=== PATIENT | female | born 1990 | race Two or more races ===

== ENCOUNTER 2018-07-20 06:58 | Emergency (ER) | payer MEDICAID ==
[~2018-07-20] VITALS: Ht 152.4 cm; Wt 47.6 kg
[2018-07-20] MEDS ORDERED: LORazepam 0.5 MG TAB PO ONE (08:15)
[2018-07-20 08:18] LABS: Urine Bacteria NONE SEEN /hpf (None Seen); Urine Blood 1+ /uL (Negative); Urine Mucus FEW (None Seen); Urine Specific Gravity 1.029 (1.001-1.035); Urine WBC 4 /hpf (0 - 5)
[2018-07-20] MEDS ORDERED: cefTRIAXone SOD 1,000 MG VL IM ONE (09:00)
[2018-07-20] MEDS ORDERED: SODIUM CHLORIDE LOCK 10 ML ONE (09:36)
[2018-07-20 09:50] VITALS: BP 140/82
== END 2018-07-20 10:28 | disposition home or self-care (01) ==
LOC: ER 06:58
DX: F41.9 Anxiety disorder, unspecified (principal); N39.0 Urinary tract infection, site not specified; Z88.0 Allergy status to penicillin
CPT/HCPCS: 81001; 81025; 96372; 99284; J0696

== ENCOUNTER 2022-04-25 23:54 | Emergency (ER) | payer MEDICAID ==
[~2022-04-25] VITALS: Ht 149.9 cm; Wt 50.0 kg
[2022-04-26] MEDS ORDERED: LORazepam 2MG/ML-1ML VIAL IM ONE (03:15)
[2022-04-26] MEDS ORDERED: HYDR50CA PO (03:15)
[2022-04-26 03:30] VITALS: BP 129/81
== END 2022-04-26 04:17 | disposition home or self-care (01) ==
LOC: ER 04-26 00:04
DX: F41.9 Anxiety disorder, unspecified (principal); R51.9 Headache, unspecified; F32.9 Major depressive disorder, single episode, unspecified
CPT/HCPCS: 93005; 96372; 99283; J2060

== ENCOUNTER → 2022-04-29 | Emergency (ER) | payer MEDICAID ==
[~2022-04-29] VITALS: Ht 152.4 cm; Wt 44.8 kg
[~2022-04-29] MED LIST: HYDR50CA PO
[2022-04-29 17:55] VITALS: BP 137/90
== END | disposition left against medical advice (07) ==
LOC: ER 17:33
DX: F41.9 Anxiety disorder, unspecified (principal); Z53.21 Procedure and treatment not carried out due to patient leaving prior to being seen by health care provider

== ENCOUNTER 2022-04-30 02:10 | Emergency (ER) | payer MEDICAID ==
[~2022-04-30] VITALS: Ht 149.9 cm; Wt 44.6 kg
[2022-04-30] MEDS ORDERED: LORazepam 2MG/ML-1ML VIAL IM ONE (03:00)
[2022-04-30 03:11] LABS: Basophils # (auto) 0 10 ^3/uL (0-0.2); Eosinophils # (auto) 0 10 ^3/uL (0-0.8); Hemoglobin 13.2 g/dL (12.2-16.2); Mean Corpuscular Hemoglobin 34.3 pg (28.0-32.0); Monocytes # (auto) 0.9 10 ^3/uL (0-1.3); Red Cell Distribution Width 13.7 % (11.8-14.3)
[2022-04-30 03:13] LABS: Basophils % (auto) 0.6 % (0.0-2.0); Eosinophils % (auto) 0.5 % (0.0-7.0); Hematocrit 37.2 % (36.0-46.0); Lymphocytes # (auto) 0.7 10 ^3/uL (0.4-5.4); Lymphocytes % (auto) 10.9 % (10.0-50.0); Mean Corpuscular Hgb Conc. 35.4 g/dL (32.0-36.0); Mean Corpuscular Volume 96.9 fL (80.0-100.0); Monocytes % (auto) 13.9 % (0.0-12.0); Neutrophils % (auto) 74.1 % (37.0-80.0); Red Blood Cells 3.84 10^6/uL (4.0-5.20); White Blood Cell 6.7 10^3/uL (4.4-10.8)
[2022-04-30 03:19] LABS: Urine Bacteria FEW /hpf (None Seen); Urine Blood Negative /uL (Negative); Urine Mucus FEW (None Seen); Urine Specific Gravity 1.005 (1.001-1.035); Urine WBC 1 /hpf (0 - 5)
[2022-04-30 03:20] LABS: Alcohol, Urine < 3.0 mg/dL (0-10); Amphetamine Screen, Urine NEGATIVE (NEGATIVE); Barbiturate Scree,Urine NEGATIVE (NEGATIVE); Benzodiazephine Screen, Urine NEGATIVE (NEGATIVE); Cannabinoid Screen, Urine POSITIVE (NEGATIVE); Cocaine Screen, Urine NEGATIVE (NEGATIVE); Phencyclidine Screen, Urine NEGATIVE (NEGATIVE)
[2022-04-30 03:27] LABS: Opiate Scree,Urine NEGATIVE (NEGATIVE)
[2022-04-30 03:29] LABS: Albumin 4.3 g/dL (3.4-5.0); BUN/Creatinine Ratio 5.4; Calcium 9.8 mg/dL (8.5-10.1)
[2022-04-30 03:32] LABS: Bilirubin, Total 0.8 mg/dL (0.2-1.0); Total Protein 8.3 g/dL (6.4-8.2)
[2022-04-30 03:35] LABS: Potassium 2.9 mmol/L (3.5-5.1)
[2022-04-30] MEDS ORDERED: POTASSIUM EFFERVESENT TAB 25 MEQ PO ONE (03:45)
[2022-04-30 08:40] VITALS: BP 116/86
== END 2022-04-30 08:43 | disposition home or self-care (01) ==
LOC: ER 02:10
DX: F41.9 Anxiety disorder, unspecified (principal); F10.10 Alcohol abuse, uncomplicated; Z79.899 Other long term (current) drug therapy; Z88.0 Allergy status to penicillin
CPT/HCPCS: 36415; 70450; 80053; 80307; 80320; 81001; 85025; 96372; 99285; J2060

== ENCOUNTER 2022-12-21 18:30 | Emergency (ER) | payer MEDICAID ==
[~2022-12-21] VITALS: Ht 149.9 cm; Wt 45.0 kg
[2022-12-21] MEDS ORDERED: HYDROmorphone HCL 2 MG/ML VL/or syr IM ONE (19:45)
[2022-12-21] MEDS ORDERED: ONDANSETRON HCL 4 MG/2 ML VIAL IM ONE (19:45)
[2022-12-21 20:14] LABS: Eosinophils # (auto) 0 10 ^3/uL (0-0.8); Monocytes % (auto) 8.5 % (0.0-12.0); Nucleated Red Blood Cells % 0.1 %
[2022-12-21 20:16] LABS: Basophils # (auto) 0.1 10 ^3/uL (0-0.2); Basophils % (auto) 0.3 % (0.0-2.0); Hematocrit 45.9 % (36.0-46.0); Hemoglobin 14.3 g/dL (12.2-16.2); Lymphocytes % (auto) 6.9 % (10.0-50.0); Mean Corpuscular Hemoglobin 32.5 pg (28.0-32.0); Mean Corpuscular Volume 104.8 fL (80.0-100.0); Monocytes # (auto) 1.2 10 ^3/uL (0-1.3); Neutrophils # (auto) 12.3 10 ^3/uL (1.6-8.6); Neutrophils % (auto) 84.3 % (37.0-80.0); Red Blood Cells 4.38 10^6/uL (4.0-5.20); Red Cell Distribution Width 14.2 % (11.8-14.3); White Blood Cell 14.6 10^3/uL (4.4-10.8)
[2022-12-21 20:42] LABS: Alanine Aminotransferase 55 U/L (7-40); Albumin 5.6 g/dL (3.2-4.8); Alkaline Phosphatase 96 U/L (46-116); Anion Gap 23.00001 (5-15); Aspartate Aminotransferase 114 U/L (13-40); Bilirubin, Total 0.7 mg/dL (0.2-1.0); Calcium 9.2 mg/dL (8.7-10.4); Chloride 100 mmol/L (98-107); Lipase 66 U/L (12-53); Potassium 4.6 mmol/L (3.5-5.1); Sodium 133 mmol/L (136-145); Total Protein 9.6 g/dL (5.7-8.2)
[2022-12-21 20:57] VITALS: BP 123/83; PULSE 60; RESP 18; O2SAT 100
[2022-12-21 21:46] LABS: Urine Bacteria NONE SEEN /hpf (None Seen); Urine Blood 2+ /uL (Negative); Urine Clarity HAZY (Clear); Urine Color Yellow (Yellow); Urine Hyaline Cast FEW /lpf (0 - 2); Urine Protein, UAD 3+ (Negative); Urine Specific Gravity 1.019 (1.001-1.035); Urine Urobilinogen Normal (Negative); Urine WBC 2 /hpf (0 - 5); Urine pH 5.5 (5.0-8.0)
[2022-12-21 21:50] LABS: BUN/Creatinine Ratio 5.7 (10.0-20.0); Blood Urea Nitrogen < 5 mg/dL (9-23)
[2022-12-21 21:53] LABS: Glucose 114 mg/dL (74-106)
[2022-12-21 21:54] LABS: Carbon Dioxide < 10 mmol/L (20-30)
== END 2022-12-21 23:16 | disposition left against medical advice (07) ==
LOC: ER 18:30
DX: F10.10 Alcohol abuse, uncomplicated (principal); E87.1 Hypo-osmolality and hyponatremia; E87.20 Acidosis, unspecified; R10.13 Epigastric pain; R11.2 Nausea with vomiting, unspecified; F41.9 Anxiety disorder, unspecified; F32.9 Major depressive disorder, single episode, unspecified; Z88.0 Allergy status to penicillin; Z79.899 Other long term (current) drug therapy; Y90.0 Blood alcohol level of less than 20 mg/100 ml
CPT/HCPCS: 36415; 80053; 80320; 81001; 81025; 83690; 85025; 96372; 99284; J1170; J2405

== ENCOUNTER 2024-06-29 02:06 | Emergency (ER) | payer MEDICAID ==
[~2024-06-29] VITALS: Ht 165.1 cm; Wt 47.1 kg
[2024-06-29] MEDS: SODIUM CHLORIDE 0.9% 1,000 ML IVB ONE (02:30)
--- NOTE | 2024-06-29 02:44 | ED.PDOC ---
[employer] HPI Comments 34-year-old female came to ER due to pelvic pain. Patient is a , diagnosed with a ectopic and underwent surgical removal June 22, 2024. After the procedure patient experiencing pelvic pain, suprapubic abdominal pain, episodes of nausea and vomiting, and vaginal bleeding consuming 2 pads per day. Patient appears very anxious at this time of care. Chief Complaint: Pelvic Pain Time Seen by MD: 02:43 Reviewed Notes: Nurses Notes Allergies: Coded Allergies: Penicillins (Verified Allergy, Severe, 07/20/18) Home Meds Active Scripts Hydrocodone-Acetaminophen (Hydrocodone Bitartrate/AC 5-325 mg) 1 Tab Tab, 1 TAB PO Q6HP PRN, #20 TAB Prov:JESUS MCNAMARA MD 06/29/24 Sulfamethoxazole W/Trimethopri (Bactrim Ds Tablet) 1 Tab Tb, 1 TAB PO BID for 7 Days, #14 TAB Prov:JESUS MCNAMARA MD 06/29/24 Hydroxyzine Pamoate (Vistaril) 50 Mg Cap, 1 CAP PO Q6HPRN, #16 CAP 0 Refills Prov:REMI FRANCIS 04/26/22 Information Source: Patient Mode of Arrival: Ambulatory Timing: Days Severity: Moderate Bleeding Quality: Bright Red Onset Of Mass/Bleeding: Other (After procedure) Associated Signs and Symptoms: Vaginal Bleeding, Abdominal Pain, Other (Pelvic pain) Past Medical History PAST MEDICAL HISTORY: Anxiety, Depression Surgical History: Denies all surgeries [employer]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 3 Para 0 Family History Family History: Reviewed,noncontributory to illness Social History Smoker: Non-Smoker Alcohol: Sober Drugs: Denies Drug Use Lives In: Home Constitutional: denies: chills, diaphoresis, fatigue, fever, malaise, sweats, weakness, others EENTM: denies: blurred vision, double vision, ear bleeding, ear discharge, ear drainage, ear pain, ear ringing, eye pain, eye redness, hearing loss, mouth pain, mouth swelling, nasal discharge, nose bleeding, nose congestion, nose pain, photophobia, tearing, throat pain, throat swelling, voice changes, others Respiratory: denies: cough, hemoptysis, orthopnea, SOB at rest, shortness of breath, SOB with excertion, stridor, wheezing, others Cardiovascular: denies: chest pain, dizzy spells, diaphoresis, Dyspnea on exer tion, edema, irregular heart beat, left arm pain, lightheadedness, palpitations, PND, syncope, others Gastrointestinal: reports: nausea, vomiting; denies: abdomen distended, abdominal pain, blood streaked bowels, constipated, diarrhea, dysphagia, difficulty swallowing, hematemesis, melena, poor appetite, poor fluid intake, rectal bleeding, rectal pain, others Genitourinary: reports: abnormal vagina bleeding, pain (Pelvic pain); denies: burning, dyspareunia, dysuria, flank pain, frequency, hematuria, incontinence, , vagina discharge, urgency, others Neurological: denies: dizziness, fainting, headache, left sided numbness, left sided weakness, numbness, paresthesia, pre-existing deficit, right sided numbness, right sided weakness, seizure, speech problems, tingling, tremors, weakness, others Musculoskeletal: denies: back pain, gout, joint pain, joint swelling, muscle pain, muscle stiffness, neck pain, others Integumetry: denies: bruises, change in color, change in hair/nails, dryness, laceration, lesions, lumps, rash, wounds, others Allergic/Immunocompromised: denies: Difficulty Healing, Frequent Infections, Hives, Itching, others Hematologic/Lymphatic: denies: anemia, blood clots, easy bleeding, easy bruising, swollen glands, others Endocrine: denies: excessive hunger, excessive sweating, excessive thirst, excessive urination, flushing, intolerance to cold, intolerance to heat, unexplained weight gain, unexplained weight loss, others Psychiatric: denies: anxiety, bipolar disorder, depression, hopeless, panic disorder, schizophrenia, sleepless, suicidal, others Physical Exam General Appearance: No Apparent Distress, Normal HEENT: Normal ENT Inspection, Pharynx Normal, TMs Normal Neck: Full Range of Motion, Non-Tender, Normal, Normal Inspection Respiratory: Chest Non-Tender, Lungs Clear, No Accessory Muscle Use, No Respiratory Distress, Normal Breath Sounds Cardiovascular: No Edema, No JVD, No Murmur, No Gallop, Normal Peripheral Pulses, Regular Rate/Rhythm Breast Exam: Deferred Gastrointestinal: No Organomegaly, No Pulsatile Mass, Normal Bowel Sounds, Soft, Suprapubic, Tenderness Genitalia: Deferred Pelvic: Deferred Rectal: Deferred Extremities: No calf tenderness, Normal capillary refill, Normal inspection, Normal range of motion, Non-tender, No pedal edema Musculoskeletal : Apperance: Normal Neurologic: Alert, rotary cutter II-XII nml as Tested, No Motor Deficits, Normal Affect, Normal Mood, No Sensory Deficits Cerebellar Function: Normal Reflexes: Normal Skin: Dry, Normal Color, Warm Lymphatic: No Adenopathy Was a procedure done? 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) Vaginal Bleeding: - Complete, - Incomplete, Ectopic , Trauma, UTI X-Ray, Labs, Meds, VS Vital Signs Date Time Temp Pulse Resp B/P (MAP) Pulse Ox O2 Delivery O2 Flow Rate FiO2 06/29/24 05:31 96 19 132/65 06/29/24 02:22 98.3 116 20 115/70 (85) 96 98.3 Lab Test 06/29/24 02:50 06/29/24 02:40 Range/Units Urine Color Straw Yellow Urine Clarity Turbid H Clear Urine pH 5.5 5.0-9.0 Urine Specific [place] 1.021 1.001-1.035 Urine Protein Negative Negative Urine Ketones Negative Negative Urine Blood 3+ H Negative /uL Urine Nitrite Negative Negative Urine Bilirubin Negative Negative Urine Urobilinogen Normal Negative mg/dL Urine Leukocyte Esterase 1+ Negative /uL Urine RBC 2 0 - 4 /hpf Urine Microscopic WBC 1 0-5 /HPF Urine Squamous Epithelial Cells Few <5 /hpf Urine Bacteria None seen None Seen /hpf Urine Yeast (Budding) Occasional None Seen /hpf Urine Glucose Normal Normal mg/dL White Blood Count 7.4 4.4-10.8 10^3/uL Red Blood Count 4.30 4.0-5.20 10^6/uL Hemoglobin 12.8 12.2-16.2 g/dL Hematocrit 38.0 36.0-46.0 % Mean Corpuscular Volume 88.4 80.0-100.0 fL Mean Corpuscular Hemoglobin 29.9 28.0-32.0 pg Mean Corpuscular Hemoglobin Concent 33.8 32.0-36.0 g/dL Red Cell Distribution Width 15.1 H 11.8-14.3 % Platelet Count 370 140-450 10^3/uL Mean Platelet Volume 7.0 6.9-10.8 fL Neutrophils (%) (Auto) 62.9 37.0-80.0 % Lymphocytes (%) (Auto) 30.6 10.0-50.0 % Monocytes (%) (Auto) 5.3 0.0-12.0 % Eosinophils (%) (Auto) 0.7 0.0-7.0 % Basophils (%) (Auto) 0.5 0.0-2.0 % Neutrophils # (Auto) 4.7 1.6-8.6 10 ^3/uL Lymphocytes # (Auto) 2.3 0.4-5.4 10 ^3/uL Monocytes # (Auto) 0.4 0-1.3 10 ^3/uL Eosinophils # (Auto) 0.1 0-0.8 10 ^3/uL Basophils # (Auto) 0 0-0.2 10 ^3/uL Nucleated Red Blood Cells 0.1 % Sodium Level 142 136-145 mmol/L Potassium Level 3.3 L 3.5-5.1 mmol/L Chloride Level 106 98-107 mmol/L Carbon Dioxide Level 26 20-31 mmol/L Anion Gap 10 5-15 Blood Urea Nitrogen 11 9-23 mg/dL Creatinine 0.73 0.550-1.02 mg/dL Glomerular Filtration Rate Calc 111 >90 mL/min BUN/Creatinine Ratio 15.1 10.0-20.0 Serum Glucose 76 74-106 mg/dL Calcium Level 9.8 8.7-10.4 mg/dL Total Bilirubin 0.2 0.2-1.0 mg/dL Aspartate Amino Transferase (AST) 18 13-40 U/L Alanine Aminotransferase (ALT) < 9 7-40 U/L Alkaline Phosphatase 68 46-116 U/L Total Protein 7.9 5.7-8.2 g/dL Albumin 4.8 3.2-4.8 g/dL Beta HCG, Quantitative 2031.8 H 1.5-4.2 mIU/mL Current Medications Medications (Trade) Dose Ordered Sig/Chip Route Start Time Stop Time Status Last Admin Ondansetron HCl (Zofran) 4 mg ONCE ONCE IV 06/29/24 02:30 06/29/24 02:34 DC 06/29/24 05:31 Sodium Chloride 1,000 ml @ 1,000 mls/hr Q1H ONCE IVB 06/29/24 02:30 06/29/24 03:29 DC 06/29/24 02:30 Morphine Sulfate 4 mg ONCE ONCE IV 06/29/24 02:30 06/29/24 02:34 DC 06/29/24 05:31 Time of 1ST Reevaluation: 02:33 Reevaluation 1ST: Unchanged Patient Education/Counseling: Diagnosis, Treatment Family Education/Counseling: No Family Present Departure 1 Departure Time of Disposition: 06:00 Impression: Primary Impression: Post-operative pain Additional Impression: UTI (urinary tract infection) Disposition: 01 HOME / SELF CARE / HOMELESS Condition: Stable e-Prescriptions Hydrocodone-Acetaminophen (Hydrocodone Bitartrate/AC 5-325 mg) 1 Tab Tab 1 TAB PO Q6HP PRN, #20 TAB Prov: JESUS MCNAMARA MD 06/29/24 Sulfamethoxazole W/Trimethopri (Bactrim Ds Tablet) 1 Tab Tb 1 TAB PO BID for 7 Days, #14 TAB Prov: JESUS MCNAMARA MD 06/29/24 Discharged With: Self Critical Care Note Critical Care Time?: No Stability Stability form required: No Heart Score Heart Score: Heart Score Response (Comments) Value History N/A 0 EKG N/A 0 Age N/A 0 Risk Factors N/A 0 Troponin N/A 0 Total 0 I personally scribed for JESUS MCNAMARA MD ([email or web address]) on 06/29/24 at 02:44. Electronically submitted by Girish Desir ([email or web address]). JESUS MCNAMARA MD Jun 29, 2024 02:44
[2024-06-29 02:51] LABS: Urine Bacteria None Seen /hpf (None Seen)
[2024-06-29 03:03] LABS: Basophils # (auto) 0 10 ^3/uL (0-0.2); Basophils % (auto) 0.5 % (0.0-2.0); Eosinophils # (auto) 0.1 10 ^3/uL (0-0.8); Eosinophils % (auto) 0.7 % (0.0-7.0); Hemoglobin 12.8 g/dL (12.2-16.2); Lymphocytes # (auto) 2.3 10 ^3/uL (0.4-5.4); Lymphocytes % (auto) 30.6 % (10.0-50.0); Mean Corpuscular Hemoglobin 29.9 pg (28.0-32.0); Mean Corpuscular Hgb Conc. 33.8 g/dL (32.0-36.0); Mean Corpuscular Volume 88.4 fL (80.0-100.0); Monocytes # (auto) 0.4 10 ^3/uL (0-1.3); Monocytes % (auto) 5.3 % (0.0-12.0); Neutrophils # (auto) 4.7 10 ^3/uL (1.6-8.6); Neutrophils % (auto) 62.9 % (37.0-80.0); Nucleated Red Blood Cells % 0.1 %; Platelet Count (auto) 370 10^3/uL (140-450); Red Cell Distribution Width 15.1 % (11.8-14.3); White Blood Cell 7.4 10^3/uL (4.4-10.8)
[2024-06-29 03:17] LABS: Alkaline Phosphatase 68 U/L (46-116); Anion Gap 10 (5-15); Aspartate Aminotransferase 18 U/L (13-40); BUN/Creatinine Ratio 15.1 (10.0-20.0); Blood Urea Nitrogen 11 mg/dL (9-23); Calcium 9.8 mg/dL (8.7-10.4); Carbon Dioxide 26 mmol/L (20-31); Chloride 106 mmol/L (98-107); Glucose 76 mg/dL (74-106); Sodium 142 mmol/L (136-145); Total Protein 7.9 g/dL (5.7-8.2)
[2024-06-29 03:18] LABS: Urine Blood 3+ /uL (Negative); Urine Budding Yeast OCCASIONAL /hpf (None Seen); Urine Clarity Turbid (Clear); Urine Protein, UAD Negative (Negative); Urine Specific Gravity 1.021 (1.001-1.035); Urine Squamous Epithelial Cell FEW /hpf (<5); Urine Urobilinogen Normal (Negative); Urine WBC 1 /HPF (0-5); Urine pH 5.5 (5.0-9.0)
[2024-06-29 03:19] LABS: Urine Color STRAW (Yellow)
[2024-06-29 03:20] LABS: Alanine Aminotransferase < 9 U/L (7-40); Albumin 4.8 g/dL (3.2-4.8); Bilirubin, Total 0.2 mg/dL (0.2-1.0); Potassium 3.3 mmol/L (3.5-5.1)
[2024-06-29] MEDS: IOHEXOL 300 MG/ML 100ML BOTTLE IJ ONE (04:40)
[2024-06-29] MEDS: MORPHINE SULFATE 4 MG/ML SYR/VIAL IV ONE (05:31)
[2024-06-29] MEDS: ONDANSETRON HCL 4 MG/2 ML VIAL IV ONE (05:31)
--- NOTE | 2024-06-29 05:31 | DVH ---
Exam: CT CT AB PEL WITH IV CON ONLY History: low abd pain, had ectopic surgery 1 wk ago Comparison Study: None Technique: Multidetector spiral CT of the abdomen was performed from lung bases to pubic symphysis. I maging was performed without IV contrast. Axial, coronal and sagittal multiplanar reformats were obta ined from the axial data set by the technologist. Radiation Dose : 1. Abdomen/Pelvis: CTDIvol 5.23 mGy, DLP 273.45 mGy*cm. Findings: Evaluation of solid organs is limited due to lack of intravenous contrast use. Lung Bases: No acute or significant lung base finding. Normal heart size. No pleural or pericardial effusion. Liver: The liver is normal in size. No focal lesions. Gallbladder and Biliary Tree: Unremarkable Spleen: Unremarkable Pancreas: The pancreas is grossly normal in appearance. Adrenal Glands: Unremarkable Kidneys: Kidneys are grossly normal without calculi or hydronephrosis. Bladder: Grossly unremarkable for degree of distention. Bowel: The stomach is grossly normal in appearance. Small bowel and colon are normal in caliber and d istribution. The appendix is not visualized; however, no secondary findings of acute appendicitis lloyd ntified. Ascites: Absent Lymphadenopathy: No mesenteric, retroperitoneal or periportal lymphadenopathy. Abdominal Wall and Mesentery: Unremarkable. Vasculature: The visualized abdominal aorta is normal in size and caliber. Evaluation of abdominal a nd pelvic vessels is limited due to lack of intravenous contrast. Pelvic Organs: The uterus is mildly enlarged and moderately heterogeneous in its enhancement. Small gas collections are noted within the region of the cervix. Musculoskeletal: No aggressive focal bony lesions, acute fractures or dislocation. IMPRESSION: 1. No acute abdominal or pelvic findings. 2. Moderately enlarged heterogeneously enhancing uterus with moderate enlargement of the cervix and s mall gas collections in the region of the cervix. No definite abscess formation. These changes may be postsurgical, however direct examination is recommended. Radiation optimization: All CT scans at this facility use at least one of these dose optimization anat hniques: automated exposure control mA and/or kV adjustment per patient size (includes targeted exam s where dose is matched to clinical indication) or iterative reconstruction.
[2024-06-29] MEDS ORDERED: BACDST PO (05:36)
[2024-06-29] MEDS ORDERED: HYDR-4902 PO (05:49)
[2024-06-29 06:09] VITALS: BP 115/70; PULSE 116; RESP 20; TEMP 98.3; O2SAT 96
== END 2024-06-29 07:00 | disposition home or self-care (01) ==
LOC: ER 02:06
DX: O23.40 Unspecified infection of urinary tract in pregnancy, unspecified trimester (principal); O00.90 Unspecified ectopic pregnancy without intrauterine pregnancy; N39.0 Urinary tract infection, site not specified; R10.2 Pelvic and perineal pain; G89.18 Other acute postprocedural pain; F41.9 Anxiety disorder, unspecified; Z3A.00 Weeks of gestation of pregnancy not specified; Z88.0 Allergy status to penicillin
CPT/HCPCS: 36415; 74177; 80053; 81001; 84702; 85025; 96361; 96374; 96375; 99285; J2270; J2405; J7030; Q9967